=== PATIENT | female | born 1960 | race Caucasian/White ===

== ENCOUNTER → 2017-07-01 | Outpatient (CLI) | payer BC, OTHER ==
[~2017-07-01] MED LIST: DIPH-416 PO; HYDR25TA4 PO; MELATAB2 PO; MOEX15TA4 PO
--- NOTE | 2017-07-01 11:39 | DIAGNOSTIC IMAGING REPORT ---
Study: Pelvis and right hip HISTORY: Pain. Priors. None. FINDINGS: Moderate degenerative change right hip. Subchondral cystic formation superior acetabulum with evidence for subchondral cyst central lucencies. No evidence for acetabular protrusion. Several soft tissue calcifications lateral to the proximal right femur possibly relating to injection granulomas. IMPRESSION: Moderate degenerative change right hip with evidence for subchondral sclerosis and cystic change of the superior acetabulum. No acute process is identified. Electronically signed by: Karthik Hawthorne M.D. 07/01/2017 11:38 AM Dictated Date/Time: 07/01/2017 11:37 AM
== END | disposition home or self-care (01) ==
LOC: C.RDSM 11:25
PROVIDERS: ATTEND Family Medicine
DX: M25.551 Pain in right hip (principal)

== ENCOUNTER 2019-08-16 07:34 | Inpatient (IN) ==
--- NOTE | 2019-07-26 15:24 | PAT Medication Instructions ---
Medication Instructions Date of Service July 26, 2019 Home Medications hydrochlorothiazide 25 mg PO QAM moexipril 15 mg PO QAM naproxen sodium 220 mg PO UD PRN ASK your surgeon for instructions naproxen sodium 220 mg PO UD PRN DO NOT take the morning of surgery hydrochlorothiazide 25 mg PO QAM moexipril 15 mg PO QAM Other Notes If you have any questions please call us at [phone] or [phone] or [phone] or [phone]
--- NOTE | 2019-07-27 16:25 | History & Physical Report ---
Date of Service July 27, 2019 Assessment & Plan (1) Osteoarthritis of right hip: DIAGNOSIS: Right hip osteoarthritis. PROCEDURE: Right total hip arthroplasty. PLAN: The patient is scheduled to undergo this procedure with Dr. Omar Perkins at [facility] as an inpatient on August 16, 2019. Risks and complications of the procedure such as infection, bleeding, pain, scarring, nerve or blood vessel damage, weakness, wound problems, stiffness, incomplete relief of symptoms, hardware failure, hardware loosening, wear, fracture, tendon or ligament injury, dislocation, leg length inequality, blood clots, embolism, heart attack, stroke, and were explained to the patient at her previous preop visit by Dr. Perkins. Informed consent form for the procedure was obtain. Patient also understands the risks of proceeding with surgery during the COVID-19 pandemic. Currently she is asymptomatic. She will receive testing for COVID-19 prior to the procedure. Patient will need updated laboratory studies such as: CBC with differential, CMP, PT/INR, blood type and s creen, hemoglobin A1c, nasal culture for MRSA, urinalysis & urine culture. patient will obtain this testing next week during her PAT visit at the hospital. We have obtained preoperative medical clearance from the patient's primary care provider, Dr. Washington. The patient is scheduled to follow up with myself 2 weeks after the procedure on August 29, 2019 at 11:15 AM. I advised her that I will provide her with prescriptions for narcotic pain medication and anti- inflammatory upon discharge from the hospital. She states she will most likely elect to be discharged home with in-home therapy. I advised her that we will also want her to take Tylenol and aspirin for pain control and DVT prophylaxis respectively and that I would put specific instructions on how to use these medications on her discharge packet. The patient has purchased a hip kit. She states she has a walker at home, she will bring with her on the day of the procedure. I advised her she will be inpatient overnight, and on postoperative day 1, she will meet with Case Management to get set up for in-home therapy. I provided the patient with paperwork to obtain a handicap placard for her vehicle. I also provided her with a pamphlet on joint replacement surgery lectures offered by [facility] that she can attend to answer any questions that she may have that were not addressed during today's visit. I also discussed the use of antibiotic medication prior to dental procedures after joint replacement surgery. I advised the patient she will not be able to drive for 6 weeks, she will have to use an abduction pillow for 6 weeks postoperatively. The patient verbalized understanding of all information provided during today's visit, thanks for the care she has received, and states if she has questions or concerns prior to the procedure date, she will contact the clinic accordingly History of Present Illness Chief Complaint: Right hip pain Primary Care Provider: Ken Peterson MD HPI: This 59-year-old female presents to the clinic today for preoperative history and physical. Patient was initially scheduled to undergo this procedure on May 30 however her surgery was canceled due to the COVID-19 pandemic. The patient has a 3+ years history of significant right-sided hip pain that has failed conservative treatment with physical therapy, ultrasound-guided steroid injections, and the use of nonsteroidal agents. She states that it has caused her to have an antalgic gait, prevents her from hiking or running. She states she has gained weight over the past several years and has now started to affect her activities of daily life. PAST MEDICAL HISTORY: Hypertension, biliary dyskinesia, depression, hyperlipidemia. PAST SURGICAL HISTORY: Left ACL reconstruction, wisdom tooth extraction, cholecystectomy, shave biopsy and cauterization of skin. FAMILY HISTORY: Positive for aortic valve disease, cardiovascular disease, heart attack, hypertension, lung cancer, and peripheral vascular disease. ALLERGIES: THE PATIENT HAS MEDICATION ALLERGIES TO AMOXICILLIN AND LAMISIL. CURRENT MEDICATIONS TAKEN: Citalopram 10 mg tablet daily, hydrochlorothiazide 25 mg oral tablet daily, moexipril 15 mg oral tablet daily. SOCIAL HISTORY: The patient denies a history of smoking or illicit drug use. States she consumes approximately 4 alcoholic beverages per month. Allergies Allergy/AdvReac Type Severity Reaction Status Date / Time amoxicillin Allergy Intermediate Pruritus Verified 07/25/19 14:30 nickel Allergy Intermediate Pruritus, Verified 07/25/19 14:30 weeping skin terbinafine Allergy Intermediate Hives Verified 07/25/19 14:30 Home Medications Home Medications Medication Instructions Recorded Confirmed Type hydrochlorothiazide 25 mg PO QAM 05/08/19 07/25/19 History moexipril 15 mg PO QAM 05/08/19 07/25/19 History naproxen sodium 220 mg PO UD PRN 05/08/19 07/25/19 History Past Med/Surg History Medical History Bulging disc cervical History of depression HTN (hypertension) Osteoarthritis Surgical History History of cholecystectomy Lap angela: 02/02/13: Grade view 1, MAC#3, ETT 7.0 at [facility] History of colonoscopy History of reconstruction of anterior cruciate ligament tear LEFT [place] teeth removed Family History Other No significant family history Social History Preferred Language: Vietnamese Communication Ability: Effective Childhood Teacher Required: No Beliefs That Will Affect Care: None Current Living Situation: Family Current Living Situation Comment: DAUGHTER Feels Safe at Home: Yes Smoking Status: Never smoker Second Hand Exposure: No ; Hx Alcohol Use: Yes Alcohol type: beer Hx Substance Use: No Review of Systems All systems reviewed & are unremarkable except as noted in HPI & below Physical Exam Physical Exam: PHYSICAL EXAMINATION: Skin: The patient's skin is normal in appearance. No open skin lesions or discharge. Eyes: Pupils are equal and reactive to light and accommodating. Extraocular movements are intact. Throat: Posterior oropharynx is clear with absence of edema, erythema, exudate. Cardiovascular: The patient has regular rate and rhythm. No murmurs or gallops appreciated. Lungs: Auscultation of lung hurtado reveals clear breath sounds throughout. No wheezing, rales, or rhonchi. Abdomen: Mildly obese, nondistended, nontender with normoactive bowel sounds. Extremities: Right hip, the patient has positive Scour and impingement tests. Positive JENARO test with referred pain in the groin. Positive logroll test and Stinchfield test. Positive straight leg raise test. Flexion is limited to 116 degrees, external rotation to 30 degrees, internal rotation to -5 degrees. She has tenderness to palpation over the anterior groin. Referred pain to this area with resisted adduction of the hip. Otherwise, she is neurovascularly intact in the right lower extremity. Her quad strength is 4/5, and she walks with an antalgic gait. Neurological: Cranial nerves 2 through 12 intact. No motor or sensory deficits. Psychological/General: The patient is alert and oriented x3 with proper grooming and hygiene.
--- NOTE | 2019-08-02 08:34 | Anesthesiology Consultation ---
Date of Service August 02, 2019 Assessment & Plan (1) Encounter for pre-operative examination: Per PAT assessment on 08/01: Travel screen negative. No history of COVID-19 testing. No current COVID-19 related symptoms. Hx travel to [facility] to father's summer home (to only visit father). Had coworker COVID-19 test + 05/11/19. Patient has not been in the office since 05/11/19 (has since worked from home). No other COVID-19 + contacts.* - PCP office visit: 05/14/19: "I believe that her risk for upcoming surgery is low and no further evaluation or test is recommended. Chart Review Chart Review: Acceptable Risk for Surgery and Patient seen in Pre Admission Testing Teaching & Discussion Pre-Anesthesia Teaching/Discussion Notes: Instructed NPO after midnight before surgery,except medications with 15 cc of water. Medication instructions provided according to the PAT guidelines. History Surgery Operation Date: 08/16/19 09:35 Proposed Procedures p Right Total Hip Arthroplasty - Omar Perkins MD Height/Weight Height: 5 ft 6 in Weight: 79.9 kg Allergies Allergy/AdvReac Type Severity Reaction Status Date / Time amoxicillin Allergy Intermediate Pruritus Verified 08/01/19 12:31 nickel Allergy Intermediate Pruritus, Verified 08/01/19 12:31 weeping skin terbinafine Allergy Intermediate Hives Verified 08/01/19 12:31 Additional Notes: Surgeon's office/OR made aware of nickel allergy* Medications Home Medications Medication Instructions Recorded Confirmed Last Taken hydrochlorothiazide 25 mg PO QAM 05/08/19 08/01/19 Unknown moexipril 15 mg PO QAM 05/08/19 08/01/19 Unknown naproxen sodium 220 mg PO UD PRN 05/08/19 08/01/19 Unknown Past Medical History Medical History Bulging disc cervical History of depression HTN (hypertension) Osteoarthritis Exercise / Class Metabolic Activity II 4-5 Yardwork/Stairs/Walk up hill Past Family History Family History Other No significant family history Past Surgical History Surgical History History of cholecystectomy Lap angela: 02/02/13: Grade view 1, MAC#3, ETT 7.0 at [facility] History of colonoscopy History of reconstruction of anterior cruciate ligament tear LEFT [place] teeth removed Past Anesthesia History No Hx of Anesthesia Complications and No Family Hx of Anesthesia Complications History of PONV No Hx of PONV and Hx of Motion Sickness (occasional) Social History Smoking Status: Never smoker Do You Dip or Chew Tobacco: No Hx Alcohol Use: Yes Alcohol type: beer alcohol intake frequency: a few times a month Hx Substance Use: No substance use type: does not use Review of Systems Patient denies chest pain, shortness of breath, dyspnea on exertion, fever, chills, reflux, cough, wheezing, palpitations. Physical Exam Vital Signs VITALS BP 119/77 P 77 TEMP 98.0 SP02 98%RA RESP 18 PHYSICAL Full neck and c-spine range of motion. Full TMJ range of motion. TMD 3 finger breaths Mallampati Score 2 Dentition: intact, single crown on left lower molar Lungs: clear throughout to auscultation Cardiac: regular rate and rhythm, no murmurs noted Spine: normal Carotid arteries: negative bruit Extremities: no edema Testing Laboratory Results 08/02/19 08:58 08/02/19 08:58 PT 10.7 Seconds (9.0-12.0) 08/02/19 08:58 INR 1.0 (0.9-1.1) 08/02/19 08:58 Hemoglobin A1c 5.4 % (4.5-5.6) 08/02/19 08:58 Urine Color Yellow 08/02/19 08:58 Urine Appearance Clear (Clear) 08/02/19 08:58 Urine pH 7.5 (4.5-7.5) 08/02/19 08:58 Ur Specific [place] 1.014 (1.000-1.030) 08/02/19 08:58 Urine Protein Negative (Negative) 08/02/19 08:58 Urine Glucose (UA) Negative (Negative) 08/02/19 08:58 Urine Ketones Negative (Negative) 08/02/19 08:58 Urine Nitrite Negative (Negative) 08/02/19 08:58 Ur Leukocyte Esterase Negative (Negative) 08/02/19 08:58 Blood Type O Positive 08/02/19 08:58 Antibody Screen NEGATIVE 08/02/19 08:58 Electrocardiogram Date: 05/11/19 Findings: + LIZBETH @ (18)
[2019-08-02 10:42] LABS: Basophils # (auto) 0.03 K/uL (0-0.2); Basophils % (auto) 0.6 %; Eosinophils # (auto) 0.25 K/uL (0-0.5); Eosinophils % (auto) 4.8 %; Hemoglobin 13.3 g/dL (12.0-16.0); Immature Granulocytes # (auto) 0.02 K/uL (0.00-0.02); Immature Granulocytes % (auto) 0.4 %; Lymphocytes # (auto) 1.28 K/uL (1.2-3.4); Lymphocytes % (auto) 24.7 %; Mean Corpuscular Hemoglobin 27.7 pg (25-34); Mean Corpuscular Hgb Conc 32.4 g/dL (32-36); Mean Corpuscular Volume 85.2 fL (80-100); Mean Platelet Volume 9.6 fL (7.4-10.4); Monocytes # (auto) 0.35 K/uL (0.11-0.59); Monocytes % (auto) 6.8 %; Neutrophils # (auto) 3.25 K/uL (1.4-6.5); Neutrophils % (auto) 62.7 %; Platelet Count 329 K/uL (130-400); RDW Coefficient of Variation 13.9 % (11.5-14.5); RDW Standard Deviation 43.2 fL (36.4-46.3); Red Blood Count 4.81 M/uL (4.2-5.4); White Blood Count 5.18 K/uL (4.8-10.8)
[2019-08-02 10:50] LABS: Albumin Level 3.9 gm/dl (3.4-5.0); Appearance Urine Clear (Clear); Bilirubin Urine Negative (Negative); Blood Urine Negative (Negative); Calcium 8.8 mg/dl (8.5-10.1); Color Urine Yellow; Creatinine Clr Calc Pharmacy 78.8 ml/min; Est GFR (African American) 90.8; Est GFR (Non-African American) 78.3; Glucose Urine UA Negative (Negative); Ketones Urine Negative (Negative); Leukocyte Esterase Urine Negative (Negative); Nitrite Urine Negative (Negative); Potassium 3.7 mmol/L (3.5-5.1); Protein Urine Negative (Negative); Specific Gravity Urine 1.014 (1.000-1.030); Urobilinogen Urine Negative (Negative); pH Urine 7.5 (4.5-7.5)
[2019-08-02 10:53] LABS: Albumin Globulin Ratio 1.1 (0.9-2); Bilirubin,Total 0.5 mg/dl (0.2-1); Globulin 3.4 gm/dl (2.5-4.0); Total Protein 7.3 gm/dl (6.4-8.2)
[2019-08-02 11:04] LABS: Prothrombin Time 10.7 Seconds (9.0-12.0)
[2019-08-02 11:09] LABS: Estimated Average Glucose 108 mg/dl; Hemoglobin A1C 5.4 % (4.5-5.6)
[~2019-08-16 07:34] MED LIST changes: +ACETAMINOPHEN 500 MG TAB PO SCH; +BUPIVACAINE 0.5 % 5 MG/1 ML PF 10ML VIAL ONE; +CeleBREX 200 MG CAP PO SCH; -DIPH-416 PO; +FAMOTIDINE 20 MG TAB PO SCH; -HYDR25TA4 PO; +LR 500ML BOLUS, THEN 15ML/HR IV SCH; +LR 60ML/HR IV SCH; -MELATAB2 PO; +METOCLOPRAMIDE HCL 10 MG TABLET PO SCH; -MOEX15TA4 PO; +ROPIVACAINE 0.5% HCL/PF 150 MG, BUPIVACAINE 0.5% MPF 30 ML, EPINEPHrine 0.15 MG, Ketoro... INFIL SCH; +SCOPOLAMINE 1.5 MG TDSY TD SCH; +TRAMADOL HCL 50 MG TABLET PO SCH; +TRANEXAMIC ACID 1,000 MG **IV Intra-op IV SCH; +TRANEXAMIC ACID 1,000 MG **IV Pre-op IV SCH; +dexAMETHasone 4 MG TAB PO SCH
[2019-08-16] MEDS ORDERED: MIDAZOLAM HCL 1 MG/ML 2ML VIAL ONE (08:37)
[2019-08-16] MEDS ORDERED: PROPOFOL IV EMULSION 10 MG/ML 20 ML VIAL IV ONE (08:37)
[2019-08-16] MEDS ORDERED: LIDOCAINE HCL 2% 2 ML VIAL/AMP(20MG/ML) INFIL ONE (08:37)
[2019-08-16] MEDS ORDERED: fentaNYL citrate 100 MCG/2 ML VIAL ONE (08:37)
[2019-08-16] MEDS ORDERED: ATROPINE SULFATE 0.1 MG/ML 10ML SYR IV PRN (08:50)
[2019-08-16] MEDS ORDERED: ePHEDrine sulfate 50 MG/ML AMP IV PRN (08:50)
[2019-08-16] MEDS ORDERED: fentaNYL citrate 100 MCG/2 ML VIAL IV PRN (08:50)
[2019-08-16] MEDS ORDERED: ONDANSETRON INJ 2 MG/ML 2 ML VIAL IV PRN ×2 (08:50→12:10)
[2019-08-16] MEDS ORDERED: HYDROmorphone INJ 2 MG/ML SYR/VIAL IV PRN (08:50)
[2019-08-16] MEDS ORDERED: CEFAZOLIN 2000MG 2,000 MG/15 ML SYR IV ONE (09:05)
--- NOTE | 2019-08-16 09:07 | History & Physical Bridge Note ---
Date of Service August 16, 2019 History & Physical Bridge Note I have examined the patient, reviewed the History & Physical and in the interval since the performance of the History & Physical I have noted the following changes of clinical significance: no changes noted
[2019-08-16] MEDS ORDERED: CEFAZOLIN 2,000 MG/15 ML IV PUSH IV ONE (09:19)
[2019-08-16] MEDS ORDERED: ORTHO JOINT ANESTHETIC ONE (09:29)
--- NOTE | 2019-08-16 11:55 | Operative Report ---
Post Operative Report Pre & Post Diagnosis Operation Date: 08/16/19 09:35 Pre-Op Diagnosis: RIGHT HIP ARTHRITIS Post-Op Diagnosis: RIGHT HIP ARTHRITIS I identified the patient and participated in the time-out.: Yes Procedure Operation Date: 08/16/19 09:35 Actual Procedures p Right Total Hip Arthroplasty - Omar Perkins MD Surgeon Omar Perkins MD [employer] Delfin Seaman MD and GRANT Nugent PA-C Estimated Blood Loss 100 Findings Consistent with Post-Op Diagnosis Fluids 1300 cc Specimens Femoral head Anesthesia Type Spinal MAC Complications none Disposition Accompanied Patient To Recovery: No Disposition: Recovery Room Indications 59-year-old female with 3 years of right hip pain refractory to conservative management. X-rays show end-stage osteoarthritis. I had a long discussion with her about the risks and benefits of surgery alternatives to surgery and expected outcomes. After reviewing all these she elected to proceed with surgery. All questions were answered. Informed consent was signed. Description of Procedure Patient was identified in the preoperative holding area and the surgical site was marked. A spinal anesthetic was placed, then the patient was brought back to the main operating room, placed in the operating table and moved into the lateral decubitus position. Axillary roll was placed. All bony prominences were padded. Perioperative antibiotics and tranexamic acid 1 gram IV were administered. Operative extremity was prepped and draped in the normal sterile fashion. Prior to incision a multidisciplinary timeout was called. All in the room were in agreement. We began by making an incision for a posterior approach to the hip. We dissected down through subcutaneous tissues to the level of the fascia. The fascia was incised in line with the incision. Charnley bow was placed. The trochanteric bursa was excised. The piriformis and short external rotators were dissected off the posterior aspect of the hip. A box cut was made in the capsule. The femoral head was dislocated. The femoral neck cut was made at our preoperative template. The acetabulum was then exposed. The labrum was sharply excised. Contents of the cotyloid fossa were removed with electrocautery. We then began reaming at a size 8 mm less than our preoperative template. We reamed up by [address] the way up to a size 50 mm cup. This gave us good bleeding cancellus bone circumferentially. The acetabulum was then irrigated out and dried. The real [place] Gription cup was then impacted down into position with 45 degrees of lateral opening and 25 degrees of anteversion. A single cancellous bone screw was placed up into the ilium. Excellent fixation was obtained. An Altrex polyethylene liner for a 32 mm femoral head was then impacted into the shell. The locking mechanism was checked to ensure that it had engaged which it had. Next we turned our attention to the femur. The lateral neck was removed with a box osteotome. Intramedullary guide was used followed by the lateralizing reamer. We then reamed up to a size 5 Heard stem. We then broached all the way up to a size 4. We began trialing with a high offset neck and a +1.5 head. Hip was reduced. Leg lengths were symmetric. The hip was stable in extension and external rotation, and stable in the sleeper position. At 90 degrees of hip flexion the hip could be internally rotated 50 degrees before levering out of the cup. I was very happy with the stability exam. Therefore the hip was dislocated and the femoral trial was removed. The femoral canal was irrigated and dried. The real size 4 high offset Heard femoral stem was opened up. This was impacted down into position. It sat about 1 mm more proud than the femoral trial. Therefore the 32 mm ceramic femoral head with a 1 mm offset was opened up and gently impacted down onto the trunnion. The hip was atraumatically reduced. Another 1 gram of IV tranexamic acid was started prior to closure. The wound was irrigated out with sterile Betadine solution. The periarticular injection cocktail was then placed. The short external rotators, piriformis, and posterior capsule were repaired through drill holes in the greater trochanter using #2 Vicryl. The fascia was run with a looped #1 PDS. The subcutaneous lay er was closed with #1 PDS. The dermal layer was closed with 2-0 Vicryl. Zip line was used for the skin followed by a Silverlon dressing. A compressive dressing was then placed. The patient was then rolled supine. Leg lengths were rechecked and were symmetric. An abduction pillow was placed. Sedation was lifted and the patient was transferred to recovery room in stable condition. Summary of implants: Depuy [place] Gription Acetabular Shell Sector Cup, 50 mm outer diameter [place] Cancellous bone screw, 6.5 x 40 mm [place] Altrx Polyethylene Acetabular Liner, Neutral, with a 32 mm inner diameter DePuy Heard Femoral stem with [place], 12/14 taper, size 4 high offset 32 mm ceramic femoral head with 1 mm offset Postoperative course: Patient will be admitted to the hospital from the recovery room. Patient will be weightbearing as tolerated with posterior hip precautions. Aspirin for DVT prophylaxis I attest to the content of the Intraoperative Record and any orders documented therein. Any exceptions are noted below.
[2019-08-16] MEDS ORDERED: MAGNESIUM HYDROXIDE SUSP 30 ML UDC PO PRN (12:10)
[2019-08-16] MEDS ORDERED: NALOXONE HCL 0.4 MG/1 ML VIAL/CARP IV PRN (12:10)
[2019-08-16] MEDS ORDERED: METOCLOPRAMIDE HCL INJ 5 MG/ML 2 ML VIAL IV PRN (12:10)
[2019-08-16] MEDS ORDERED: ALUMINUM/MAGNESIUM SUSP 30 ML UDC PO PRN (12:10)
[2019-08-16] MEDS ORDERED: OXYCODONE HCL IR 5 MG TAB (IMMEDIATE RELEASE) PO PRN (12:10)
[2019-08-16] MEDS ORDERED: bisacodyL 10 MG SUPP PR PRN (12:10)
[2019-08-16] MEDS ORDERED: DiphenhydrAMINE HCL 50 MG/ML VIAL IV PRN (12:10)
--- NOTE | 2019-08-16 12:10 | Operative Report ---
Post Operative Report Pre & Post Diagnosis Operation Date: 08/16/19 09:35 Pre-Op Diagnosis: RIGHT HIP ARTHRITIS Post-Op Diagnosis: RIGHT HIP ARTHRITIS I identified the patient and participated in the time-out.: Yes Procedure Operation Date: 08/16/19 09:35 Actual Procedures p Right Total Hip Arthroplasty - Omar Perkins MD Surgeon Omar Perkins MD Checker/Stocker Delfin Seaman MD and GRANT Nugent PA-C Estimated Blood Loss 100 Findings Consistent with Post-Op Diagnosis Specimens femoral head Complications none Disposition Accompanied Patient To Recovery: Yes Disposition: Recovery Room Description of Procedure I was present during the entire case assisting with wound closure and dressing application. Please see Dr. Perkins procedure note for specifics. I attest to the content of the Intraoperative Record and any orders documented therein. Any exceptions are noted below.
--- NOTE | 2019-08-16 12:11 | Operative Report ---
Post Operative Report Pre & Post Diagnosis Operation Date: 08/16/19 09:35 Pre-Op Diagnosis: RIGHT HIP ARTHRITIS Post-Op Diagnosis: RIGHT HIP ARTHRITIS I identified the patient and participated in the time-out.: Yes Procedure Operation Date: 08/16/19 09:35 Actual Procedures p Right Total Hip Arthroplasty - Omar Perkins MD Surgeon Omar Perkins MD [employer] Delfin Seaman MD and GRANT Nugent PA-C Estimated Blood Loss 100 Findings Consistent with Post-Op Diagnosis Specimens R femoral head Complications none Disposition Accompanied Patient To Recovery: Yes Disposition: Recovery Room Description of Procedure Lateral decubitus position, standard prep and drape, time out Right Total Hip Arthroplasty Please see Dr Perkins's procedure notes for specific details I was present throughout the case, assisted for wound closure and transferred the patient to PACU in stable condition I attest to the content of the Intraoperative Record and any orders documented therein. Any exceptions are noted below.
--- NOTE | 2019-08-16 12:40 | XRay Report ---
SINGLE VIEW PELVIS; SINGLE VIEW RIGHT HIP CLINICAL HISTORY: Postoperative examination. FINDINGS: An AP portable view of the hips and pelvis with a crosstable lateral portable view of the r ight hip are obtained. Comparison is made to study dated 05/11/2019. A bipolar right hip arthroplasty is in near-anatomic alignment. A single cortical lag screw transfixes the acetabular cup. No acute fr acture is identified. There are expected postoperative changes overlying the right hip including subc utaneous gas and soft tissue swelling. IMPRESSION: Expected postoperative findings status post right hip arthroplasty. No acute fracture is seen. ACT 112: Negative or not required by law. Electronically signed by: Floyd Ugarte M.D. 08/16/2019 12:39 PM
--- NOTE | 2019-08-16 14:05 | Anesthesiology Progress Note ---
Date of Service August 16, 2019 Anesthesia Post Procedure Vital Signs Vital Signs: Temp Pulse Pulse Resp BP BP Pulse Ox 08/16/19 13:45 36.9 C 64 16 121/73 98 08/16/19 13:15 36.8 C 60 16 110/65 97 08/16/19 13:00 61 13 105/66 100 08/16/19 12:45 36.2 C L 65 12 125/72 100 08/16/19 12:35 63 13 113/66 100 08/16/19 12:25 63 16 118/72 98 08/16/19 12:15 60 16 114/75 98 08/16/19 12:08 36.2 C L 73 14 128/74 98 08/16/19 08:59 36.7 C 74 18 147/89 H 100 08/16/19 08:05 37 C 87 18 152/91 H 98 Pain Intensity Right Hip: Pain Intensity: 0 Transfer of Care Handoff Completed per policy Notes Mental Status: alert / awake / arousable and participated in evaluation Patient Amnestic to Procedure: Yes Nausea / Vomiting: adequately controlled Pain: adequately controlled Airway Patency, RR, SpO2: stable & adequate BP & HR: stable & adequate Hydration State: stable & adequate Anesthetic Complications: no major complications apparent and Pt Satisfied with anesthetic care
[2019-08-16] MEDS: SODIUM CHLORIDE 0.9% 1000ML 1,000 ML IV SCH (14:22)
[2019-08-16] MEDS: ACETAMINOPHEN 500 MG TAB PO SCH ×2 (14:25→21:08)
[2019-08-16] MEDS: KETOROLAC 30 MG/ML VIAL IV SCH ×2 (14:57→21:08)
[2019-08-16] MEDS: CHECK SCOPOLAMINE PATCH PLACEMENT SCH (15:50)
[2019-08-16] MEDS: CEFAZOLIN 2000MG 2,000 MG/15 ML SYR IV SCH (18:00)
[2019-08-16] MEDS ORDERED: TRANEXAMIC ACID / 0.7% NACL 1,000 MG/100 ML BAG IV SCH (18:00)
[2019-08-16] MEDS ORDERED: SENNA 8.6 MG TAB PO SCH (21:00)
[2019-08-16] MEDS: DOCUSATE SODIUM 100 MG CAP PO SCH (21:08)
[2019-08-16] MEDS: ASPIRIN 81 MG ECTAB PO SCH (21:08)
[2019-08-17] MEDS: CHECK SCOPOLAMINE PATCH PLACEMENT SCH ×2 (00:16→08:56)
[2019-08-17] MEDS: SODIUM CHLORIDE 0.9% 1000ML 1,000 ML IV SCH (00:17)
[2019-08-17] MEDS: CEFAZOLIN 2000MG 2,000 MG/15 ML SYR IV SCH (02:31)
[2019-08-17] MEDS: KETOROLAC 30 MG/ML VIAL IV SCH ×2 (02:36→08:57)
[2019-08-17] MEDS: ACETAMINOPHEN 500 MG TAB PO SCH ×2 (05:23→13:09)
[2019-08-17 06:12] LABS: Basophils # (auto) 0.02 K/uL (0-0.2); Basophils % (auto) 0.2 %; Hematocrit (blood only) 31.4 % (37-47); Hemoglobin 10.5 g/dL (12.0-16.0); Immature Granulocytes # (auto) 0.02 K/uL (0.00-0.02); Immature Granulocytes % (auto) 0.2 %; Lymphocytes # (auto) 0.66 K/uL (1.2-3.4); Lymphocytes % (auto) 5.9 %; Mean Corpuscular Hemoglobin 28.1 pg (25-34); Mean Corpuscular Hgb Conc 33.4 g/dL (32-36); Mean Platelet Volume 9.1 fL (7.4-10.4); Monocytes # (auto) 1.04 K/uL (0.11-0.59); Monocytes % (auto) 9.3 %; Neutrophils # (auto) 9.39 K/uL (1.4-6.5); Neutrophils % (auto) 84.4 %; Platelet Count 251 K/uL (130-400); RDW Coefficient of Variation 13.8 % (11.5-14.5); RDW Standard Deviation 42.1 fL (36.4-46.3); Red Blood Count 3.74 M/uL (4.2-5.4); White Blood Count 11.13 K/uL (4.8-10.8)
[2019-08-17 06:40] LABS: BUN Creatinine Ratio 18.4 (10-20); Calcium 8.5 mg/dl (8.5-10.1); Creatinine Clr Calc Pharmacy 82.2 ml/min; Est GFR (African American) 96.4; Est GFR (Non-African American) 83.2; Potassium 3.4 mmol/L (3.5-5.1)
[2019-08-17] MEDS ORDERED: dexAMETHasone 4 MG TAB PO SCH (08:00)
[2019-08-17] MEDS ORDERED: Nursing to Pharmacy Communication SCH (08:45)
[2019-08-17] MEDS: ASPIRIN 81 MG ECTAB PO SCH (08:57)
[2019-08-17] MEDS: DOCUSATE SODIUM 100 MG CAP PO SCH (08:57)
[2019-08-17] MEDS ORDERED: hydroCHLOROthiazide 25 MG TAB PO SCH (09:00)
[2019-08-17] MEDS ORDERED: MULTIVITAMIN TAB PO SCH (09:00)
--- NOTE | 2019-08-17 11:34 | Orthopedic Progress Note ---
Date of Service August 17, 2019 Assessment & Plan (1) History of total right hip arthroplasty: PT/OT WBAT with walker assistance Ice with EZ wrap Keep dressing in place DVT Prophy with Aspirin and TEDs Pain control with PO meds Total Hip precautions Discharge home with in home PT F/u at [facility] as previously scheduled With Questions call: Admission and Anticipated Discharge Date Admission Date: August 16, 2019 Subjective This 59 yo F is day 1 s/p Right total hip arthroplasty. She states that she is doing very well and has very little pain this AM. She states that she does experience some difficulty transferring from her bed to the chair without assisting her leg with her arms. Otherwise she has been ambulating to the bathroom unassisted with her walker. She denies CP, SOB, nausea, vomiting, fever, chills, sweats, or lethargy. Review of Systems Review of Systems: All systems reviewed & are unremarkable except as noted in Subjective Physical Exam Physical Exam: Right Hip: Neg log roll. Minimal pain with very light passive internal/external hip rotation. Able to actively SLRT and dorsi/plantar flex foot. Quad strength 4/5. NV intact. Dressing clean, dry and intact. Knee ROM 0-90 without pain. Periph pulse easily palpable. Cap refill < 2 seconds Results & Data ([facility]) Vital Signs (Past 12 Hours) Vital Signs Temp Pulse Resp BP Pulse Ox 08/17/19 07:47 37.0 C 69 16 126/81 98 08/17/19 03:17 36.6 C 62 20 119/72 98 08/16/19 23:45 36.6 C 81 18 120/75 97 Laboratory Results 08/17/19 08/17/19 08/16/19 Range/Units 06:02 06:02 07:57 WBC 11.13 H (4.8-10.8) K/uL RBC 3.74 L (4.2-5.4) M/uL Hgb 10.5 L (12.0-16.0) g/dL Hct 31.4 L (37-47) % MCV 84.0 (80-100) fL MCH 28.1 (25-34) pg MCHC 33.4 (32-36) g/dL RDW Std Deviation 42.1 (36.4-46.3) fL RDW Coeff of Magda 13.8 (11.5-14.5) % Plt Count 251 (130-400) K/uL MPV 9.1 (7.4-10.4) fL Immature Gran % (Auto) 0.2 % Neut % (Auto) 84.4 % Lymph % (Auto) 5.9 % Price % (Auto) 9.3 % Eos % (Auto) 0.0 % Baso % (Auto) 0.2 % Immature Gran # (Auto) 0.02 (0.00-0.02) K/uL Neut # (Auto) 9.39 H (1.4-6.5) K/uL Lymph # (Auto) 0.66 L (1.2-3.4) K/uL Price # (Auto) 1.04 H (0.11-0.59) K/uL Eos # (Auto) 0.00 (0-0.5) K/uL Baso # (Auto) 0.02 (0-0.2) K/uL Sodium 141 (136-145) mmol/L Potassium 3.4 L (3.5-5.1) mmol/L Chloride 109 H (98-107) mmol/L Carbon Dioxide 24 (21-32) mmol/L Anion Gap 7.0 (3-11) BUN 14 (7-18) mg/dl Creatinine 0.78 (0.6-1.2) mg/dl Est Cr Clr Drug Dosing 82.2 ml/min Est GFR ( Amer) 96.4 Est GFR (Non-Af Amer) 83.2 BUN/Creatinine Ratio 18.4 (10-20) Glucose 114 H (70-99) mg/dl Calcium 8.5 (8.5-10.1) mg/dl Hepatitis C Ab Screen Neg (Neg)
--- NOTE | 2019-08-17 12:16 | Discharge Summary ---
Date of Service August 17, 2019 Admission HPI Per Admitting Provider HPI: This 59-year-old female presents to the clinic today for preoperative history and physical. Patient was initially scheduled to undergo this procedure on May 30 however her surgery was canceled due to the COVID-19 pandemic. The patient has a 3+ years history of significant right-sided hip pain that has failed conservative treatment with physical therapy, ultrasound-guided steroid injections, and the use of nonsteroidal agents. She states that it has caused her to have an antalgic gait, prevents her from hiking or running. She states she has gained weight over the past several years and has now started to affect her activities of daily life. PAST MEDICAL HISTORY: Hypertension, biliary dyskinesia, depression, hyperlipidemia. PAST SURGICAL HISTORY: Left ACL reconstruction, wisdom tooth extraction, cholecystectomy, shave biopsy and cauterization of skin. FAMILY HISTORY: Positive for aortic valve disease, cardiovascular disease, heart attack, hypertension, lung cancer, and peripheral vascular disease. ALLERGIES: THE PATIENT HAS MEDICATION ALLERGIES TO AMOXICILLIN AND LAMISIL. CURRENT MEDICATIONS TAKEN: Citalopram 10 mg tablet daily, hydrochlorothiazide 25 mg oral tablet daily, moexipril 15 mg oral tablet daily. SOCIAL HISTORY: The patient denies a history of smoking or illicit drug use. States she consumes approximately 4 alcoholic beverages per month. Admission Exam Per Admitting Provider PHYSICAL EXAMINATION: Skin: The patient's skin is normal in appearance. No open skin lesions or discharge. Eyes: Pupils are equal and reactive to light and accommodating. Extraocular movements are intact. Throat: Posterior oropharynx is clear with absence of edema, erythema, exudate. Cardiovascular: The patient has regular rate and rhythm. No murmurs or gallops appreciated. Lungs: Auscultation of lung hurtado reveals clear breath sounds throughout. No wheezing, rales, or rhonchi. Abdomen: Mildly obese, nondistended, nontender with normoactive bowel sounds. Extremities: Right hip, the patient has positive Scour and impingement tests. Positive JENARO test with referred pain in the groin. Positive logroll test and Stinchfield test. Positive straight leg raise test. Flexion is limited to 116 degrees, external rotation to 30 degrees, internal rotation to -5 degrees. She has tenderness to palpation over the anterior groin. Referred pain to this area with resisted adduction of the hip. Otherwise, she is neurovascularly intact in the right lower extremity. Her quad strength is 4/5, and she walks with an antalgic gait. Neurological: Cranial nerves 2 through 12 intact. No motor or sensory deficits. Psychological/General: The patient is alert and oriented x3 with proper grooming and hygiene. Principal Diagnosis Right Hip Osteoarthritis Discharge Exam Right Hip: Neg log roll. Minimal pain with very light passive internal/external hip rotation. Able to actively SLRT and dorsi/plantar flex foot. Quad strength 4/5. NV intact. Dressing clean, dry and intact. Knee ROM 0-90 without pain. Periph pulse easily palpable. Cap refill < 2 seconds Discharge Data Allergies Allergy/AdvReac Type Severity Reaction Status Date / Time amoxicillin Allergy Intermediate Pruritus Verified 08/16/19 08:02 nickel Allergy Intermediate Pruritus, Verified 08/16/19 08:02 weeping skin terbinafine Allergy Intermediate Hives Verified 08/16/19 08:02 Consultations 08/17/19 08:00 Consult Case Management - Discharge Planning Routine Procedures Performed Operation Date: 08/16/19 09:35 Actual Procedures p Right Total Hip Arthroplasty - Omar Perkins MD Hospital Course (1) History of total right hip arthroplasty: Patient did very well overnight. She also did well with PT/OT this AM. She is ready to be discharged home with in home therapy. She was very happy with her care and results of her surgery. PT/OT WBAT with walker assistance Ice with EZ wrap Keep dressing in place DVT Prophy with Aspirin and TEDs Pain control with PO meds Total Hip precautions Discharge home with in home PT F/u at [facility] as previously scheduled With Questions call: Total Time Total Time Spent Total Time Spent (In Minutes): 20 mins Total Time Includes: Examination of the Patient, Discharge Planning and Medication Reconciliation Discharge Plan Discharge Items Patient Disposition: Home - Home Health Services Reason For Visit: RIGHT HIP ARTHRITIS Discharge Diagnosis: right hip osteoarthritis Activity: As commented below Lifting: None Bathing: Keep incision dry Bathing Comment: may shower tomorrow Sexual Activity: Wait until after follow-up appointment Exercise/Sports: Wait until after follow-up appointment Driving/Machine Use: No driving until cleared by orthropedic specialist Weightbearing: Right weightbearing Weightbearing Comment: as tolerated with walker assistance Non-emergency contact: Primary Care Provider Call non-emergency contact if: you have any medication questions, your pain is not controlled, your temperature is above 101.5, your wound has increased drainage and your wound pain has increased Follow-up/Referrals: Ken Peterson MD [Primary Care Provider] - Diet: Regular Addtl Attending Provider Instructions: Post-operative Instructions Dear Patient and Family/Friends, Before you are discharged from the hospital, it is important to know what to expect when you get home after surgery. To that end, we have created this sheet of discharge instructions which covers many commonly asked questions. Make sure you go through this sheet in its entirety with your nurse before you are discharged. Please note that we will go over the specifics of your surgery and recovery when you return for your first post-operative visit. Sincerely, Dr. Perkins Medications 1. Oxycodone 5 mg: take 1-2 tabs po q 4-6 hrs for pain control. This prescription will be sent to your pharmacy. 2. Diclofenac Sodium 75 mg: take 1 tab twice daily for 30 days post operatively for pain control. A prescription with 1 refill will be sent to your pharmacy. 3. Aspirin 81 mg: take 2 tabs daily for 30 days post operatively for blood clot prevention. Please purchase. 4. Extra Strength Tylenol 500 mg: take 2 tabs every 6-8 hours for pain relief for 3 days post operatively. Please purchase. Pain Expect to be in a fair amount of pain after surgery. Remember, our goal is not to eliminate your pain, but to make it tolerable. It is a good idea to stay ahead of your pain by taking the medications you were prescribed once you get home. Typically, the pain starts improving 3-7 days after surgery. You should start weaning off the narcotic pain medication (oxycodone, hydrocodone, hydromorphone, morphine) as soon as your pain improves. Please call our office if your pain is not adequately controlled. Ice Ice your operative site at least 5 times a day for 15-30 minutes at a time. Make sure you have a thin cloth between the ice or cooling unit and your skin to prevent gill bite. This is especially important if you received a nerve block. Continue icing your operative site for the first 5-7 days after surgery, then as needed. Diet/Nausea/Vomiting Start by drinking clear liquids and eating crackers. If you can tolerate this, then you may resume your normal diet. If you feel nauseated or vomit, take Zofran/ondansetron (if prescribed). Please call our office if you have intractable nausea or vomiting, or, if after hours, you may go to the Emergency Room for help. Constipation Constipation is a common side effect of narcotic pain medication. If you have not had a bowel movement within 2 days after surgery, we recommend purchasing an over the counter laxative such as Milk of Magnesia, Dulcolax, or Miralax from a local pharmacy, and taking it as instructed. Call our clinic if any questions. Slings and Braces If you were placed in a sling or brace, it must be worn at all times, including sleep. You may remove your sling or brace for physical therapy, home exercises, and showering. The length of time you will be in your brace and range of motion restrictions depends on what surgery you had; these details will be reviewed at your first post-operative appointment. Nerve block The anesthesia team sometimes places a nerve block to help with post-operative pain control. This results in significant numbness and inability to move the extremity. The nerve block usually wears off in 8-12 hours, but sometimes can last up to 24 hours. Please call our office if you are still unable to move your extremity after 24 hours, unless you received a pain pump to take home. Nerve blocks typically wear off quickly, so start taking pain medication as soon as you start feeling soreness near your surgical site. Weight bearing and Range of Motion. Do not bear any weight through your operative extremity immediately after surgery. If you had upper extremity surgery, do not lift anything with that arm. If you are in a knee brace, keep it locked in place until your follow-up. We will discuss your weight bearing, range of motion, and lifting restrictions in detail at your first post-operative appointment. Continuous Passive Motion (CPM) Machine If you were prescribed a CPM machine, it will start after your first post- operative appointment, at which time we will give you instructions on the range of motion settings and duration of treatment Physical therapy You will be given a prescription for physical therapy or occupational therapy at your first post-operative appointment. Typically, patients start therapy within 1 week of surgery Wound care and showering We will inspect your wound at your first post-operative visit, and may do a dressing change at that time. Most patients will be in a water-proof dressing that is removed 14 days after surgery. It is normal to see some dried blood on the dressing. Do not remove your dressing, paper strips or sutures yourself unl ess you are given permission. Showering is allowed the day after surgery. Do not scrub or remove any dressings. The wound should not be submerged underwater (i.e. in a bathtub or pool) until 4 weeks after surgery NIKKIE stockings If you were given white stockings, these are to be worn at all times except to shower (on both legs) for the first 2 weeks after surgery. Driving You may not drive while taking narcotic pain medication or while in a cast, splint, sling or brace. You, the patient, need to make the final determination about when you are safe to drive, however, the earliest you may consider driving after surgery is below: Hand/Wrist/Elbow Surgery: 3 days Shoulder Surgery: 2 weeks Hip,/Knee/Ankle Surgery: 4 weeks Fracture repair: 6 weeks Return to Work Your return to work depends on what surgery was done and what type of work you do. Please bring any paperwork your employer needs completed to your first post-operative visit. Also, bring a description of your job duties, as this helps us to understand what risks you may face at work. Travel Avoid long distance travel (greater than 1 hour) in airplanes and cars for the first 6 weeks after surgery. If you must travel, you need to have a Doppler ultrasound done before you travel to rule out a blood clot in your legs. Follow-up You should have a follow-up appointment already scheduled 1-2 days after surgery. If not, please contact our office to make this appointment before you leave the hospital. When to call the office It is normal to have swelling and bruising in the limb that was operated on. This will improve with time. It is also normal to have fevers for the first 2 days after surgery. Reasons you should call your doctor include: Uncontrolled pain; Nausea, vomiting, or constipation that does not improve with medication; Fevers over 101.5, chills, sweats; Drainage or bleeding from the wound; Foul odor; Spreading areas of redness; Any other concerns Pending Studies at Discharge: No Stand-Alone Forms: Counts Include [facility] B[facility] At [facility] Medications and DC Order Prescriptions: New oxycodone 5 mg tablet 5 mg PO Q6H Qty: 30 RF: 0 diclofenac sodium 75 mg tablet,delayed release (DR/EC) 75 mg PO BID 30 Days Qty: 60 RF: 1 Continued moexipril 15 mg Tablet 15 mg PO QAM RF: 0 hydrochlorothiazide 25 mg Tablet 25 mg PO QAM RF: 0 Discontinued naproxen sodium 220 mg Capsule 220 mg PO UD PRN (Reason: Pain) RF: 0 Discharge Orders: Discharge Order (Routine); Ordered 08/17/19 Ordered By: Navarro Nugent Admission Data Admit Date/Time: 08/16/19 12:10 Attending Provider: Omra Perkins Admit Provider: Omar Perkins Primary Care Provider: Ken Peterson
[2019-08-17] MEDS ORDERED: CeleBREX 200 MG CAP PO SCH (21:00)
== END 2019-08-17 14:13 | disposition home health service (06) | DRG 470 ==
LOC: ASU 07:34 → 3E 12:10

== ENCOUNTER 2019-09-12 10:26 | Observation (INO) ==
--- NOTE | 2019-09-11 17:15 | History & Physical Report ---
Date of Service September 11, 2019 Assessment & Plan (1) Abscess of right hip: DIAGNOSIS: Right hip wound infection PROCEDURE: Irrigation and debridement of infected right hip wound, possible polyethylene exchange PLAN: The patient is scheduled to undergo this procedure with Dr. Omar Perkins at [facility] as an inpatient on September 12, 2019. Risks and complications of the procedure such as infection, bleeding, pain, scarring, nerve or blood vessel damage, weakness, wound problems, stiffness, incomplete relief of symptoms, hardware failure, hardware loosening, wear, fracture, tendon or ligament injury, dislocation, leg length inequality, blood clots, embolism, heart attack, stroke, and were explained to the patient at her previous preop visit by Dr. Perkins. Informed consent form for the procedure was obtain. Patient also understands the risks of proceeding with surgery during the COVID-19 pandemic. Currently she is asymptomatic. She will possibly receive testing for COVID-19 prior to the procedure, however the results will not be available. Patient will need updated CBC and CMP patient will receive at the laboratory upstairs following today's appointment. Preoperative medical clearance not indicated and her EKG is up-to-date. The patient is scheduled to follow up with myself 2 weeks after the procedure on September 26, 2019. I advised her that I will provide her with prescriptions for narcotic pain medication and anti-inflammatory upon discharge from the hospital. I advised her that we will also want her to take Tylenol and aspirin for pain control and DVT prophylaxis respectively and that I would put specific instructions on how to use these medications on her discharge packet. She states she has a walker at home, she will bring with her on the day of the procedure. I advised her she will be inpatient overnight, and on postoperative day 1, she will most likely be discharged. The patient verbalized understanding of all information provided during today's visit, thanks for the care she has received, and states if she has questions or concerns prior to the procedure date, she will contact the clinic accordingly. History of Present Illness Chief Complaint: CHIEF COMPLAINT: Right infection/abscess Primary Care Provider: Ken Peterson MD HPI: This 59-year-old female presents to the clinic today for a follow-up evaluation with Dr. Perkins for swelling redness and warmth to the distal margin of her incision site on the right hip with what she described as purulent drainage a few days ago. Patient denies fever, chills, sweats, nausea, vomiting or diarrhea. She states that her hip feels great and her range of motion and function of improved significantly, and she is no longer using any type of ambulatory device. She is concerned that she may have an infection after evaluation Dr. Perkins recommended that we do a preoperative history and physical to set her up for an [facility]. PAST MEDICAL HISTORY: Hypertension, biliary dyskinesia, depression, hyperlipidemia. PAST SURGICAL HISTORY: Right Total Hip Arthroplasty; Left ACL reconstruction, wisdom tooth extraction, cholecystectomy, shave biopsy and cauterization of skin. FAMILY HISTORY: Positive for aortic valve disease, cardiovascular disease, hear t attack, hypertension, lung cancer, and peripheral vascular disease. ALLERGIES: THE PATIENT HAS MEDICATION ALLERGIES TO AMOXICILLIN AND LAMISIL. CURRENT MEDICATIONS TAKEN: Citalopram 10 mg tablet daily, hydrochlorothiazide 25 mg oral tablet daily, moexipril 15 mg oral tablet daily. SOCIAL HISTORY: The patient denies a history of smoking or illicit drug use. States she consumes approximately 4 alcoholic beverages per month. Allergies Allergy/AdvReac Type Severity Reaction Status Date / Time amoxicillin Allergy Intermediate Pruritus Verified 09/03/19 11:25 nickel Allergy Intermediate Pruritus, Verified 09/03/19 11:25 weeping skin terbinafine Allergy Intermediate Hives Verified 09/03/19 11:25 Home Medications Home Medications Medication Instructions Recorded Confirmed Type hydrochlorothiazide 25 mg PO QAM 05/08/19 09/03/19 History moexipril 15 mg PO QAM 05/08/19 09/03/19 History Past Med/Surg History Medical History Bulging disc cervical History of depression HTN (hypertension) Osteoarthritis Surgical History History of cholecystectomy Lap angela: 02/02/13: Grade view 1, MAC#3, ETT 7.0 at [facility] History of colonoscopy History of reconstruction of anterior cruciate ligament tear LEFT [place] teeth removed Family History Other No significant family history Social History Preferred Language: Sami Communication Ability: Effective Directory Operator Required: No Beliefs That Will Affect Care: None Current Living Situation: Family Current Living Situation Comment: DAUGHTER Feels Safe at Home: Yes Smoking Status: Never smoker Second Hand Exposure: No ; Hx Alcohol Use: Yes Alcohol type: beer Hx Substance Use: No Review of Systems All systems reviewed & are unremarkable except as noted in HPI & below Physical Exam Physical Exam: PHYSICAL EXAMINATION: Skin: The patient's skin is normal in appearance. No open skin lesions or discharge. Eyes: Pupils are equal and reactive to light and accommodating. Extraocular movements are intact. Throat: Posterior oropharynx is clear with absence of edema, erythema, exudate. Cardiovascular: The patient has regular rate and rhythm. No murmurs or gallops appreciated. Lungs: Auscultation of lung hurtado reveals clear breath sounds throughout. No wheezing, rales, or rhonchi. Abdomen: Mildly obese, nondistended, nontender with normoactive bowel sounds. Extremities: Right hip; flexion to 90 causes no pain. Light passive internal or external rotation causes no pain. Patient does have an area of erythema and warmth with palpable fluctuance to the distal margin of the incision site is slightly tender to palpation. Otherwise, she is neurovascularly intact in the right lower extremity. Her quad strength is 4/5, and she walks with an antalgic gait. Neurological: Cranial nerves 2 through 12 intact. No motor or sensory deficits. Psychological/General: The patient is alert and oriented x3 with proper grooming and hygiene.
[~2019-09-12 10:26] MED LIST changes: -ACETAMINOPHEN 500 MG TAB PO SCH; -BUPIVACAINE 0.5 % 5 MG/1 ML PF 10ML VIAL ONE; +CEFAZOLIN 2000MG 2,000 MG/15 ML SYR IV SCH; -CeleBREX 200 MG CAP PO SCH; -FAMOTIDINE 20 MG TAB PO SCH; +LACTATED RINGER'S 1,000 ML IV SCH; -LR 500ML BOLUS, THEN 15ML/HR IV SCH; -LR 60ML/HR IV SCH; -METOCLOPRAMIDE HCL 10 MG TABLET PO SCH; -SCOPOLAMINE 1.5 MG TDSY TD SCH; -TRAMADOL HCL 50 MG TABLET PO SCH; -TRANEXAMIC ACID 1,000 MG **IV Intra-op IV SCH; -TRANEXAMIC ACID 1,000 MG **IV Pre-op IV SCH; -dexAMETHasone 4 MG TAB PO SCH
--- NOTE | 2019-09-12 11:54 | History & Physical Bridge Note ---
Date of Service September 12, 2019 History & Physical Bridge Note I have examined the patient, reviewed the History & Physical and in the interval since the performance of the History & Physical I have noted the following changes of clinical significance: no changes noted
[2019-09-12] MEDS ORDERED: LIDOCAINE HCL 2% 2 ML VIAL/AMP(20MG/ML) INFIL ONE (13:11)
[2019-09-12] MEDS ORDERED: ONDANSETRON INJ 2 MG/ML 2 ML VIAL ONE (13:11)
[2019-09-12] MEDS ORDERED: PROPOFOL IV EMULSION 10 MG/ML 20 ML VIAL IV ONE ×2 (13:11→14:16)
[2019-09-12] MEDS ORDERED: MIDAZOLAM HCL 1 MG/ML 2ML VIAL ONE (13:12)
[2019-09-12] MEDS ORDERED: fentaNYL citrate 100 MCG/2 ML VIAL ONE (13:12)
[2019-09-12] MEDS ORDERED: ONDANSETRON INJ 2 MG/ML 2 ML VIAL IV PRN ×2 (13:51→14:58)
[2019-09-12] MEDS ORDERED: ATROPINE SULFATE 0.1 MG/ML 10ML SYR IV PRN (13:51)
[2019-09-12] MEDS ORDERED: ePHEDrine sulfate 50 MG/ML AMP IV PRN (13:51)
[2019-09-12] MEDS ORDERED: fentaNYL citrate 100 MCG/2 ML VIAL IV PRN (13:51)
--- NOTE | 2019-09-12 13:53 | Anesthesiology Consultation ---
Date of Service September 12, 2019 Assessment & Plan (1) Encounter for pre-operative examination: Chart Review Chart Review: Acceptable Risk for Surgery and Patient NOT seen in Pre Admission Testing Consults Requested none ASA ASA2 Proposed Anesthesia Anesthesia Type: MAC Spinal Risk / Benefits Reviewed With: PT / POA / Parent / Guardian, Accepts Plan and Informed Consent Obtained History Surgery Operation Date: 09/12/19 12:30 Proposed Procedures p Right Hip Wound Infection Irrigation and Debridement, Possible Polyethylene Exchange - Omar Perkins MD Height/Weight Height: 5 ft 6 in Weight: 77.9 kg Allergies Allergy/AdvReac Type Severity Reaction Status Date / Time amoxicillin Allergy Intermediate Pruritus Verified 09/03/19 11:25 hydrocodone Allergy Intermediate itching Verified 09/12/19 10:56 nickel Allergy Intermediate Pruritus, Verified 09/03/19 11:25 weeping skin terbinafine Allergy Intermediate Hives Verified 09/03/19 11:25 Medications Home Medications Medication Instructions Recorded Confirmed Last Taken hydrochlorothiazide 25 mg PO QAM 05/08/19 09/12/19 09/11/19 07:00 moexipril 15 mg PO QAM 05/08/19 09/12/19 09/12/19 08:00 Active Medications Generic Name Dose Route Start Last Admin Trade Name Freq PRN Reason Stop Dose Admin Lactated Ringer's 1,000 mls @ 15 mls/hr 09/12/19 06:00 09/12/19 13:37 Lr IV 09/13/19 05:59 Infused .Q24H SHWETHA Infusion Cefazolin Sodium 2,000 mg in 15 mls @ 3.75 mls/min 09/12/19 06:00 09/12/19 13:23 Ancef 2000mg IV 09/12/19 18:00 3.75 mls/min PREOP SHWETHA Administration Protocol NPO Date Last Intake of Fluids: 09/12/19 Time Last Intake of Fluids: 04:00 Date Last Intake of Solids: 09/11/19 Time Last Intake of Solids: 21:00 Past Medical History Medical History Bulging disc cervical History of depression HTN (hypertension) Osteoarthritis Exercise / Class Metabolic Activity II 4-5 Yardwork/Stairs/Walk up hill Past Family History Family History Other No significant family history Past Surgical History Surgical History History of cholecystectomy Lap angela: 02/02/13: Grade view 1, MAC#3, ETT 7.0 at [facility] History of colonoscopy History of reconstruction of anterior cruciate ligament tear LEFT [place] teeth removed Past Anesthesia History No Hx of Anesthesia Complications and No Family Hx of Anesthesia Complications History of PONV No Hx of PONV and No Hx of Motion Sickness Social History Smoking Status: Never smoker Hx Alcohol Use: Yes Alcohol type: beer alcohol intake frequency: a few times a month Hx Substance Use: No substance use type: does not use Physical Exam Vital Signs Last Vital Signs Temp 37.1 C 09/12/19 10:58 Pulse 99 H 09/12/19 10:58 Resp 20 09/12/19 10:58 BP 134/92 09/12/19 10:58 Pulse Ox 99 09/12/19 10:58 ENMT Mouth: no dentition abnormality Thyromental Distance: > or= 3.5 Finger Breadths Mallampati Class: II Neck normal visual inspection Respiratory normal respiratory effort Auscultation: lungs clear to auscultation bilaterally Cardiovascular Rate/Rhythm: regular rate and regular rhythm Psychiatric Orientation: alert
[2019-09-12] MEDS ORDERED: DiphenhydrAMINE HCL 50 MG/ML VIAL IV PRN (14:58)
[2019-09-12] MEDS ORDERED: METOCLOPRAMIDE HCL INJ 5 MG/ML 2 ML VIAL IV PRN (14:58)
[2019-09-12] MEDS ORDERED: OXYCODONE HCL IR 5 MG TAB (IMMEDIATE RELEASE) PO PRN (14:58)
[2019-09-12] MEDS ORDERED: NALOXONE HCL 0.4 MG/1 ML VIAL/CARP IV PRN (14:58)
[2019-09-12] MEDS: SODIUM CHLORIDE 0.9% 1000ML 1,000 ML IV SCH (16:54)
[2019-09-12] MEDS: KETOROLAC 30 MG/ML VIAL IV SCH ×2 (16:54→22:44)
--- NOTE | 2019-09-12 16:58 | Anesthesiology Progress Note ---
Date of Service September 12, 2019 Anesthesia Post Procedure Vital Signs Vital Signs: Temp Pulse Pulse Resp BP BP Pulse Ox 09/12/19 16:00 67 16 133/77 97 09/12/19 15:45 37.4 C 70 19 122/76 98 09/12/19 15:30 62 18 132/80 97 09/12/19 15:20 60 16 138/82 97 09/12/19 15:10 63 14 126/75 100 09/12/19 15:00 70 16 131/78 100 09/12/19 14:53 36.5 C 68 16 126/77 100 09/12/19 10:58 37.1 C 99 H 20 134/92 99 Pain Intensity Right Hip: Pain Intensity: 1 Transfer of Care Handoff Completed per policy Notes Mental Status: alert / awake / arousable and participated in evaluation Patient Amnestic to Procedure: Yes Nausea / Vomiting: adequately controlled Pain: adequately controlled Airway Patency, RR, SpO2: stable & adequate BP & HR: stable & adequate Hydration State: stable & adequate Neuraxial Anesthesia: was administered and sensory block is resolving Anesthetic Complications: no major complications apparent and Pt Satisfied with anesthetic care
[2019-09-12] MEDS: CEFAZOLIN 2000MG 2,000 MG/15 ML SYR IV SCH (21:04)
[2019-09-12] MEDS: TRAMADOL HCL 50 MG TABLET PO PRN (21:04)
[2019-09-12] MEDS: ASPIRIN 81 MG ECTAB PO SCH (21:04)
[2019-09-12] MEDS: DOCUSATE SODIUM 100 MG CAP PO SCH (21:04)
--- NOTE | 2019-09-12 23:55 | Operative Report (OR) ---
DATE OF OPERATION: 09/12/2019 PREOPERATIVE DIAGNOSIS: Right hip wound abscess. POSTOPERATIVE DIAGNOSIS: Right hip wound abscess. OPERATION PERFORMED: I and D of right hip wound abscess. SURGEON: Omar Perkins MD CHIMNEY CONSTRUCTION SUPERVISOR: Delfin Seaman MD ESTIMATED BLOOD LOSS: 50 mL. INTRAVENOUS FLUIDS: 800 mL crystalloid. SPECIMENS: Three tissue cultures from the deep wound and one superficial swab. COMPLICATIONS: None. IMPLANTS: None. DRAINS: One Hemovac drain. INDICATIONS: Ms. Law is a 59-year-old female who is 4 weeks out from a right total hip arthroplasty. She had some issues with her dressing postoperatively and some water got on to her surgical incision through the waterproof dressing. When it was removed, there was a little bit of irritation of the skin that was noted at her 2-week followup. Then more recently in the last 5 days or so, she started developing some purulent drainage from the wound followed by some redness at the distal aspect of her wound. She has not had any pain in her hip and in fact returned to work. Has not had any fevers or chills. I saw her in clinic yesterday and she clearly had angry looking wound distally with redness, warmth, and swelling. Her hip exam was benign indicating that this was a superficial infection. There was no further drainage from the wound. I recommended operative debridement of her abscess. After reviewing all the risks and benefits of the surgery, alternatives to surgery, and expected outcome, she elected to proceed. All questions were answered. Informed consent was signed. OPERATIVE FINDINGS: The distal 6 cm of her incision were opened up through the area of redness. There was a small abscess tract that went down approximately 4 cm into the subcutaneous tissues, but did not violate the fascia. The wound was thoroughly debrided to remove any scar tissue and nonhealthy appearing tissue. We did note a small bone fragment in the wound which was clearly not irrigated out of her wound and from the previous surgery. The small bony fragment was sent to pathology. The wound was closed over a Hemovac drain using absorbable PDS nonbraided sutures deep and a standard closure for the skin. DESCRIPTION OF THE OPERATION: The patient was identified in the preoperative holding area where her surgical site was marked. She was brought back to main operating room where a spinal anesthetic was then placed. She was then given a spinal anesthetic, then moved in the supine position. Axillary roll was placed. Stulberg positioner was appropriately adjusted. All bony prominences were padded. Perioperative antibiotics were held until after cultures had been obtained. She was prepped and draped in the normal sterile fashion. Prior to incision, a multidisciplinary timeout was called. All in the room were in agreement. We began by opening up her wound for the distal 6 cm through the area of red erythematous wound. There was no immediate purulence, but there was some fluid. A swab was inserted into the wound and the first set of swab cultures were obtained. We went deep in the wound down to the level of the fascia. Hemostasis was ensured. Necrotic appearing tissue was then debrided. It did appear to have early signs of an abscess track developing. This was all completely excised. We then ellipsed out the skin edges. At this point, we carefully inspected the fascia. There were no rents in the fascia nor was there any evidence of fluid beneath the fascia. The fascial layer looked pristine with no abnormal appearing scar tissue. Therefore, I elected not to open up her fascia. The wound was then irrigated out with 5 liters of normal saline. Our gloves were changed and we changed out to new sterile instruments. We then placed a Hemovac drain that exited the thigh distally. We then closed the wound in layers using #1 PDS sutures for the subcutaneous layers followed by 2-0 Vicryl for the deep dermal layers and 3-0 Monocryl in horizontal mattress fashion for the skin. A compressive dressing was placed from the toes up to the hip. Her sedation was lifted. She was rolled supine and transferred to the recovery room in stable condition. POSTOPERATIVE COURSE: The patient will be admitted overnight for IV antibiotics. We will plan on pulling her drain tomorrow. She can weightbear as tolerated with posterior hip precautions. We will follow her cultures. I did start her on oral Keflex yesterday and we will continue this until we have definitive cultures back as the most likely bug is Staph aureus in this situation. I attest to the content of the Intraoperative Record and any orders documented therein. Any exception s are noted below.
[2019-09-13] MEDS: SODIUM CHLORIDE 0.9% 1000ML 1,000 ML IV SCH (04:03)
[2019-09-13] MEDS: KETOROLAC 30 MG/ML VIAL IV SCH ×2 (05:23→10:49)
[2019-09-13] MEDS: CEFAZOLIN 2000MG 2,000 MG/15 ML SYR IV SCH ×3 (05:24→22:04)
--- NOTE | 2019-09-13 07:10 | Orthopedic Progress Note ---
Date of Service September 13, 2019 Assessment & Plan (1) Abscess of right hip: Continue empiric IV ancef. Continue to follow cultures and tailor antibiotic therapy appropriately. ID consulted PT/OT today, WBAT with posterior hip precautions. ASA for DVT prophylaxis. Likely discharge home tomorrow. Present on Admission?: Yes Admission and Anticipated Discharge Date Admission Date: September 12, 2019 Subjective Rested well overnight. No fevers/chills. No nausea/vomiting. No chest pain/sob. Pain adequately controlled. Physical Exam Physical Exam: Dressing removed. Mild redness around the wound. No drainage. Wound drain pulled. Silverlon dressing placed. Results & Data ([facility]) Vital Signs (Past 12 Hours) Vital Signs Temp Pulse Resp BP Pulse Ox 09/13/19 04:04 36.7 C 64 16 123/75 98 09/12/19 23:37 36.9 C 75 16 120/73 97 09/12/19 19:22 36.6 C 86 18 132/82 98
[2019-09-13] MEDS: ASPIRIN 81 MG ECTAB PO SCH ×2 (07:53→22:05)
[2019-09-13] MEDS: hydroCHLOROthiazide 25 MG TAB PO SCH (07:53)
[2019-09-13] MEDS: DOCUSATE SODIUM 100 MG CAP PO SCH ×2 (07:53→22:05)
[2019-09-13] MEDS: ENALAPRIL MALEATE 10 MG TAB PO SCH (07:53)
--- NOTE | 2019-09-13 08:32 | Anesthesiology Progress Note ---
Date of Service September 13, 2019 Anesthesia Post Procedure Vital Signs Vital Signs: Temp Pulse Pulse Pulse Resp BP BP 09/13/19 07:36 36.7 C 79 16 129/87 09/13/19 04:04 36.7 C 64 16 123/75 09/12/19 23:37 36.9 C 75 16 120/73 09/12/19 19:22 36.6 C 86 18 132/82 09/12/19 18:33 36.7 C 90 18 137/93 09/12/19 17:45 37.3 C 80 16 139/84 09/12/19 17:00 36.8 C 18 145/91 H 09/12/19 16:29 36.9 C 20 136/52 L 09/12/19 16:00 67 16 133/77 09/12/19 15:45 37.4 C 70 19 122/76 09/12/19 15:30 62 18 132/80 09/12/19 15:20 60 16 138/82 09/12/19 15:10 63 14 126/75 09/12/19 15:00 70 16 131/78 09/12/19 14:53 36.5 C 68 16 126/77 09/12/19 10:58 37.1 C 99 H 20 134/92 Pulse Ox 09/13/19 07:36 99 09/13/19 04:04 98 09/12/19 23:37 97 09/12/19 19:22 98 09/12/19 18:33 98 09/12/19 17:45 100 09/12/19 17:00 100 09/12/19 16:29 99 09/12/19 16:00 97 09/12/19 15:45 98 09/12/19 15:30 97 09/12/19 15:20 97 09/12/19 15:10 100 09/12/19 15:00 100 09/12/19 14:53 100 09/12/19 10:58 99 Pain Intensity Right Hip: Pain Intensity: 1 Notes Mental Status: alert / awake / arousable Nausea / Vomiting: adequately controlled Pain: adequately controlled Airway Patency, RR, SpO2: stable & adequate BP & HR: stable & adequate Hydration State: stable & adequate Neuraxial Anesthesia: was administered and sensory block resolved Anesthetic Complications: no major complications apparent and Pt Satisfied with anesthetic care
[2019-09-13] MEDS ORDERED: MOEXIPRIL 15 MG PO SCH (09:00)
[2019-09-13] MEDS ORDERED: VANCOMYCIN CONSULT ACTIVE PRN (10:06)
[2019-09-13] MEDS ORDERED: VANCOMYCIN HCL 1,250 MG in SODIUM CHLORIDE 0.9% 500 ML IV SCH (10:15)
[2019-09-13] MEDS ORDERED: VANCOMYCIN HCL 2,000 MG in SODIUM CHLORIDE 0.9% 500 ML IV ONE (10:30)
[2019-09-13 10:59] LABS: Creatinine Clr Calc Pharmacy 76.9 ml/min; Est GFR (African American) 89.5; Est GFR (Non-African American) 77.2
--- NOTE | 2019-09-13 12:25 | Operative Report ---
Post Operative Report Pre & Post Diagnosis Operation Date: 09/12/19 12:30 Pre-Op Diagnosis: Right Hip Wound Infection Post-Op Diagnosis: Right Hip Wound Infection I identified the patient and participated in the time-out.: Yes Procedure Operation Date: 09/12/19 12:30 Actual Procedures p Right Hip Wound Infection Irrigation and Debridement(Right) - Omar Perkins MD Surgeon Omar Perkins MD Lamp Decorator MD Urszula Estimated Blood Loss 50 Findings Consistent with Post-Op Diagnosis Specimens soft tissue samples Complications none Disposition Accompanied Patient To Recovery: Yes Disposition: Recovery Room Description of Procedure Lateral decubitus position, standard prep and drape, time out Right Hip Wound Infection Irrigation and Debridement Please see DR Perkins's procedure notes for specific details I was present throughout the case, assisted for wound closure and transferred the patient to PACU in stable condition I attest to the content of the Intraoperative Record and any orders documented therein. Any exceptions are noted below.
--- NOTE | 2019-09-13 14:08 | Pharmacy Report ---
Pharmacy Abx Initial Consult - Date of Service September 13, 2019 - Pharmacy Dosing Scope Date of Consult: 09/12 Consultation requested by: Navarro Nugent Pharmacy is consulted to initiate vancomycin IV/PO dosing therapy, order appropriate labs and adjust drug dose/frequency. - Subjective The patient is a 59 year old F admitted on 09/12/19 14:59. - Objective Height: 5 ft 6 in Weight: 77.9 kg Vital Signs (Past 12hrs): Vital Signs Temp Pulse Resp BP Pulse Ox 09/13/19 07:36 36.7 C 79 16 129/87 99 09/13/19 04:04 36.7 C 64 16 123/75 98 Lab Results (24hrs): Laboratory Tests (24 Hours) 09/13/19 10:28 Creatinine 0.83 Est Cr Clr Drug Dosing 76.9 Micro Results: 09/12/19 14:00 Gram Stain - Final Hip,Right 09/12/19 14:17 Gram Stain - Final Hip,Right 09/12/19 14:00 Gram Stain - Final Hip,Right 09/12/19 14:00 Gram Stain - Final Hip,Right - Assessment & Plan Assessment 59 year old female now s/p I&D of hip. Prelim cultures with staph aureus. Currently on vancomycin and ancef. ID consulted Plan Vancomycin IV * Received loading dose of vancomycin 2000 mg x 1 (~25 mg/kg) * Patient candidate for vancomycin AUC nomogram dosing - will dose with 1500 mg iv q 12 hrs * Target AUC/JANET = 400-600 * Estimated kinetics: t1/2~10hrs, CrCl ~76 ml/min - appears to be at baseline renal function Pharmacy will continue to follow and will adjust dose/frequency as necessary. Thank you.
[2019-09-13] MEDS ORDERED: VANCOMYCIN HCL 1,250 MG in SODIUM CHLORIDE 0.9% 250 ML IV SCH (22:00)
[2019-09-13] MEDS: VANCOMYCIN HCL 1,500 MG in SODIUM CHLORIDE 0.9% 500 ML IV SCH (22:04)
[2019-09-13] MEDS: MAGNESIUM HYDROXIDE SUSP 30 ML UDC PO PRN (22:05)
[2019-09-14] MEDS: CEFAZOLIN 2000MG 2,000 MG/15 ML SYR IV SCH ×3 (05:30→23:18)
[2019-09-14] MEDS: MAGNESIUM HYDROXIDE SUSP 30 ML UDC PO PRN ×2 (05:39→15:55)
[2019-09-14 07:03] LABS: Creatinine Clr Calc Pharmacy 80.8 ml/min; Est GFR (Non-African American) 81.9
[2019-09-14 08:16] LABS: Basophils # (auto) 0.03 K/uL (0-0.2); Basophils % (auto) 0.4 %; Eosinophils % (auto) 19.3 %; Immature Granulocytes # (auto) 0.04 K/uL (0.00-0.02); Immature Granulocytes % (auto) 0.5 %; Lymphocytes # (auto) 1.19 K/uL (1.2-3.4); Lymphocytes % (auto) 15.3 %; Monocytes # (auto) 0.48 K/uL (0.11-0.59); Monocytes % (auto) 6.2 %; Neutrophils # (auto) 4.54 K/uL (1.4-6.5); Neutrophils % (auto) 58.3 %; White Blood Count 7.78 K/uL (4.8-10.8)
[2019-09-14] MEDS: ASPIRIN 81 MG ECTAB PO SCH ×2 (09:13→22:04)
[2019-09-14] MEDS: hydroCHLOROthiazide 25 MG TAB PO SCH (09:13)
[2019-09-14] MEDS: DOCUSATE SODIUM 100 MG CAP PO SCH ×2 (09:13→15:55)
[2019-09-14] MEDS: ENALAPRIL MALEATE 10 MG TAB PO SCH (09:13)
[2019-09-14] MEDS: VANCOMYCIN HCL 1,500 MG in SODIUM CHLORIDE 0.9% 500 ML IV SCH (09:16)
[2019-09-14] MEDS: TRAMADOL HCL 50 MG TABLET PO PRN (18:51)
--- NOTE | 2019-09-14 21:30 | Orthopedic Progress Note ---
Date of Service September 14, 2019 Assessment & Plan (1) Abscess of right hip: discontinue vanco, plan on IV ancef as per ID recs for 3 weeks ID following, appreciate recommendations. PT/OT today, WBAT with posterior hip precautions. ASA for DVT prophylaxis discharge home tomorrow with home health Admission and Anticipated Discharge Date Admission Date: September 12, 2019 Subjective did well overnight. no fevers/chills. got picc line this am. cultures back mssa Physical Exam Physical Exam: dressing cdi. erythema more faint today than yeaterday. mvi Results & Data ([facility]) Vital Signs (Past 12 Hours) Vital Signs Temp Pulse Resp BP Pulse Ox 09/14/19 15:11 36.8 C 88 18 149/82 H 100 wbc and esr normal. crp elevated at 0.55
[2019-09-15] MEDS: CEFAZOLIN 2000MG 2,000 MG/15 ML SYR IV SCH (05:22)
[2019-09-15 07:09] LABS: Creatinine Clr Calc Pharmacy 74.2 ml/min; Est GFR (African American) 85.7; Est GFR (Non-African American) 73.9
[2019-09-15] MEDS: ASPIRIN 81 MG ECTAB PO SCH (08:42)
[2019-09-15] MEDS: DOCUSATE SODIUM 100 MG CAP PO SCH (08:42)
[2019-09-15] MEDS: hydroCHLOROthiazide 25 MG TAB PO SCH (08:42)
[2019-09-15] MEDS: ENALAPRIL MALEATE 10 MG TAB PO SCH (08:43)
--- NOTE | 2019-09-15 08:47 | XRay Report ---
XR chest 1V portable CLINICAL HISTORY: confirm PICC line placement COMPARISON STUDY: Chest radiograph August 26, 2011. FINDINGS: Lung volumes are normal. Lungs are clear. There is no pneumothorax or pleural effusion. Car diac size is normal. Mediastinal contours are normal. There is no evidence for pulmonary edema. The t ip of the right PICC projects over the distal SVC. IMPRESSION: 1. Tip of right PICC projects of the distal SVC. 2. No acute findings. ACT 112: Negative or not required by law. Electronically signed by: Juan Carlos Gerardo M.D. 09/15/2019 8:45 AM
--- NOTE | 2019-09-15 09:05 | Orthopedic Progress Note ---
Date of Service September 15, 2019 Assessment & Plan (1) Abscess of right hip: Patient is doing well status post I&D of her right hip. PICC line has been placed and is in appropriate position. Patient will be discharged to home today with home health services. Prescription has been written for Ancef 2 g IV 3 times daily x3 weeks for self administration Follow-up in the office in 2 weeks as scheduled for dressing removal and staple removal. Written discharge instructions have been provided. Patient has her previous prescriptions at home Admission and Anticipated Discharge Date Admission Date: September 12, 2019 Subjective Patient is seen in her room this morning. States she feels well. She did have some right-sided chest discomfort yesterday after PICC line placement. Patient states she received 1 dose of pain medication last evening and the pain resolved. It has not recurred. She did have a chest x-ray obtained overnight. She feels ready for discharge. No nausea, vomiting, shortness of breath, or abdominal pain. No other complaints. Review of Systems Review of Systems: Unchanged from yesterday Physical Exam Physical Exam: General: Well-developed, well-nourished, middle-aged white female, sitting in a chair in her room. Alert and oriented. Talkative. Good spirits. Skin: Warm and dry with good turgor. No rashes or lesions. No ecchymosis. Silverlon dressing is in place over her right hip surgical wound. Previous erythema is resolving. Expected postoperative edema. The patient is not diaphoretic. No abrasions. Musculoskeletal: Patient has supple motion of the right hip. She rises easily from a chair. Intact motor function to the right knee, ankle, and toes. Neurologic: Gross sensation is intact across the right thigh by soft touch. Results & Data ([facility]) Vital Signs (Past 12 Hours) Vital Signs Temp Pulse Pulse Resp BP Pulse Ox 09/15/19 08:22 36.9 C 72 18 122/78 98 09/15/19 08:03 36.7 C 67 74 16 127/79 99 09/14/19 23:15 36.7 C 74 16 127/79 99 Diagnostic Findings Chest x-ray obtained last night shows IMPRESSION: 1. Tip of right PICC projects of the distal SVC. 2. No acute findings.
--- NOTE | 2019-09-18 13:19 | Discharge Summary ---
Date of Service September 18, 2019 Admission HPI Per Admitting Provider HPI: This 59-year-old female presents to the clinic today for a follow-up evaluation with Dr. Perkins for swelling redness and warmth to the distal margin of her incision site on the right hip with what she described as purulent drainage a few days ago. Patient denies fever, chills, sweats, nausea, vomiting or diarrhea. She states that her hip feels great and her range of motion and function of improved significantly, and she is no longer using any type of ambulatory device. She is concerned that she may have an infection after evaluation Dr. Perkins recommended that we do a preoperative history and p hysical to set her up for an irrigation debridement at the [facility] tomorrow. PAST MEDICAL HISTORY: Hypertension, biliary dyskinesia, depression, hyperlipidemia. PAST SURGICAL HISTORY: Right Total Hip Arthroplasty; Left ACL reconstruction, wisdom tooth extraction, cholecystectomy, shave biopsy and cauterization of skin. FAMILY HISTORY: Positive for aortic valve disease, cardiovascular disease, heart attack, hypertension, lung cancer, and peripheral vascular disease. ALLERGIES: THE PATIENT HAS MEDICATION ALLERGIES TO AMOXICILLIN AND LAMISIL. CURRENT MEDICATIONS TAKEN: Citalopram 10 mg tablet daily, hydrochlorothiazide 25 mg oral tablet daily, moexipril 15 mg oral tablet daily. SOCIAL HISTORY: The patient denies a history of smoking or illicit drug use. States she consumes approximately 4 alcoholic beverages per month. Admission Exam Per Admitting Provider PHYSICAL EXAMINATION: Skin: The patient's skin is normal in appearance. No open skin lesions or discharge. Eyes: Pupils are equal and reactive to light and accommodating. Extraocular movements are intact. Throat: Posterior o ropharynx is clear with absence of edema, erythema, exudate. Cardiovascular: The patient has regular rate and rhythm. No murmurs or gallops appreciated. Lungs: Auscultation of lung hurtado reveals clear breath sounds throughout. No wheezing, rales, or rhonchi. Abdomen: Mildly obese, nondistended, nontender with normoactive bowel sounds. Extremities: Right hip; flexion to 90 causes no pain. Light passive internal or external rotation causes no pain. Patient does have an area of erythema and warmth with palpable fluctuance to the distal margin of the incision site is slightly tender to palpation. Otherwise, she is neurovascularly intact in the right lower extremity. Her quad strength is 4/5, and she walks with an antalgic gait. Neurological: Cranial nerves 2 through 12 intact. No motor or sensory deficits. Psychological/General: The patient is alert and oriented x3 with proper grooming and hygiene. Principal Diagnosis Left Hip Abscess (s/p total hip arthroplasty) Discharge Exam General: Well-developed, well-nourished, middle-aged white female, sitting in a chair in her room. Alert and oriented. Talkative. Good spirits. Skin: Warm and dry with good turgor. No rashes or lesions. No ecchymosis. Silverlon dressing is in place over her right hip surgical wound. Previous erythema is resolving. Expected postoperative edema. The patient is not diaphoretic. No abrasions. Musculoskeletal: Patient has supple motion of the right hip. She rises easily from a chair. Intact motor function to the right knee, ankle, and toes. Neurologic: Gross sensation is intact across the right thigh by soft touch. Discharge Data Allergies Allergy/AdvReac Type Severity Reaction Status Date / Time amoxicillin Allergy Intermediate Pruritus Verified 09/03/19 11:25 hydrocodone Allergy Intermediate itching Verified 09/12/19 10:56 nickel Allergy Intermediate Pruritus, Verified 09/03/19 11:25 weeping skin terbinafine Allergy Intermediate Hives Verified 09/03/19 11:25 Consultations 09/13/19 07:12 Consult Infectious Diseases Routine 09/13/19 08:00 Consult Case Management - Discharge Planning Routine Procedures Performed Operation Date: 09/12/19 12:30 Actual Procedures p Right Hip Wound Infection Irrigation and Debridement(Right) - Omar Perkins MD Hospital Course (1) Abscess of right hip: Patient had PICC line placed on 09/14/19 and will be on IV Ancef 3x daily for the next 3 weeks. Otherwise, stay was fairly uneventful and she will f/u in the Clinic on 09/28/19. IV ancef as per ID recs for 3 weeks ID following, appreciate recommendations. PT/OT today, WBAT with posterior hip precautions. ASA for DVT prophylaxis discharge home Tuesday09/15/19 with home health Total Time Total Time Spent Total Time Spent (In Minutes): 20 mins Total Time Includes: Examination of the Patient, Discharge Planning and Medication Reconciliation Discharge Plan Discharge Items Patient Disposition: Home - Home Health Services Reason For Visit: Right Hip Wound Infection Discharge Diagnosis: Right hip wound infection Condition on Discharge: Good Activity: As commented below Lifting: None Bathing: Keep incision dry Bathing Comment: May shower tomorrow Sexual Activity: Wait until after follow-up appointment Exercise/Sports: Wait until after follow-up appointment Driving/Machine Use: No driving until cleared by Dr. Perkins Weightbearing: Full weightbearing Weightbearing Comment: as tolerated Non-emergency contact: Primary Care Provider and Surgeon Call non-emergency contact if: you have any medication questions, your pain is not controlled, your temperature is above 101.5, your wound has increased redness, your wound has increased drainage and your wound pain has increased Follow-up/Referrals: Ken Peterson MD [Primary Care Provider] - Diet: Regular Addtl Attending Provider Instructions: Post-operative Instructions Dear Patient and Family/Friends, Before you are discharged from the hospital, it is important to know what to expect when you get home after surgery. To that end, we have created this sheet of discharge instructions which covers many commonly asked questions. Make sure you go through this sheet in its entirety with your nurse before you are discharged. Please note that we will go over the specifics of your surgery and recovery when you return for your first post-operative visit. Sincerely, Dr. Perkins Pain Expect to be in a fair amount of pain after surgery. Remember, our goal is not to eliminate your pain, but to make it tolerable. It is a good idea to stay ahead of your pain by taking the medications you were prescribed once you get home. Typically, the pain starts improving 3-7 days after surgery. You should start weaning off the narcotic pain medication (oxycodone, hydrocodone, hydromorphone, morphine) as soon as your pain improves. Please call our office if your pain is not adequately controlled. Ice Ice your operative site at least 5 times a day for 15-30 minutes at a time. Make sure you have a thin cloth between the ice or cooling unit and your skin to prevent gill bite. This is especially important if you received a nerve block. Continue icing your operative site for the first 5-7 days after surgery, then as needed. Diet/Nausea/Vomiting Start by drinking clear liquids and eating crackers. If you can tolerate this, then you may resume your normal diet. If you feel nauseated or vomit, take Zofran/ondansetron (if prescribed). Please call our office if you have intractable nausea or vomiting, or, if after hours, you may go to the Emergency Room for help. Constipation Constipation is a common side effect of narcotic pain medication. If you have not had a bowel movement within 2 days after surgery, we recommend purchasing an over the counter laxative such as Milk of Magnesia, Dulcolax, or Miralax from a local pharmacy, and taking it as instructed. Call our clinic if any questions. Physical therapy You will be given a prescription for physical therapy or occupational therapy at your first post-operative appointment. Typically, patients start therapy within 1 week of surgery Wound care and showering We will inspect your wound at your first post-operative visit, and may do a dressing change at that time. Most patients will be in a water-proof dressing that is removed 14 days after surgery. It is normal to see some dried blood on the dressing. Do not remove your dressing, paper strips or sutures yourself unless you are given permission. Showering is allowed the day after surgery. Do not scrub or remove any dressings. The wound should not be submerged underwater (i.e. in a bathtub or pool) until 4 weeks after surgery NIKKIE stockings If you were given white stockings, these are to be worn at all times except to shower (on both legs) for the first 2 weeks after surgery. Driving You may not drive while taking narcotic pain medication or while in a cast, splint, sling or brace. You, the patient, need to make the final determination about when you are safe to drive, however, the earliest you may consider driving after surgery is below: Hand/Wrist/Elbow Surgery: 3 days Shoulder Surgery: 2 weeks Hip,/Knee/Ankle Surgery: 4 weeks Fracture repair: 6 weeks Return to Work Your return to work depends on what surgery was done and what type of work you do. Please bring any paperwork your employer needs completed to your first post-operative visit. Also, bring a description of your job duties, as this helps us to understand what risks you may face at work. Travel Avoid long distance travel (greater than 1 hour) in airplanes and cars for the first 6 weeks after surgery. If you must travel, you need to have a Doppler ultrasound done before you travel to rule out a blood clot in your legs. Follow-up You should have a follow-up appointment already scheduled 1-2 days after surgery. If not, please contact our office to make this appointment before you leave the hospital. When to call the office It is normal to have swelling and bruising in the limb that was operated on. This will improve with time. It is also normal to have fevers for the first 2 days after surgery. Reasons you should call your doctor include: Uncontrolled pain; Nausea, vomiting, or constipation that does not improve with medication; Fevers over 101.5, chills, sweats; Drainage or bleeding from the wound; Foul odor; Spreading areas of redness; Any other concerns Pending Studies at Discharge: No Stand-Alone Forms: [facility] [employer], Opioid Pain Management, Smoking Cessation Medications and DC Order Prescriptions: New tramadol 50 mg tablet 50 mg PO Q6H PRN (Reason: pain) Qty: 12 RF: 0 Continued moexipril 15 mg Tablet 15 mg PO QAM RF: 0 hydrochlorothiazide 25 mg Tablet 25 mg PO QAM RF: 0 Discharge Orders: Discharge Order (Routine); Ordered 09/15/19 Ordered By: Eddie Stinson/Other Patient Handouts: DVT Post Op Prevention, Caring for Your Central Vein Access, Understanding Hip Replacement, Hip Replace Total Activity, Caring for Your PICC Dc Admission Data Admit Date/Time: 09/12/19 14:59 Attending Provider: Omar Perkins Admit Provider: Omar Perkins Primary Care Provider: Ken Peterson Other Providers: Amadou Marin ; Juliette Jo ; Gurmeet Carrera I. ; Jan Senior II ; Akiko Powlel ; Karthik Poole ; [place] Other Interventions: Discharge Summary Assessment (RN) Last Done: 09/15/19 08:03 DC Date/Time DO NOT enter until pt leaves facility: 09/15/19 10:28
== END 2019-09-15 10:28 | disposition home health service (06) ==
LOC: ASU 10:26 → 3E 10:26
PROC: M.IDHIP (2019-09-12 12:30)